=== PATIENT | male | born 1990 | race American Indian/Alaskan Native ===

== ENCOUNTER 2020-05-31 14:56 | Emergency (ER) | payer MEDICAID ==
[2020-05-31 15:06] VITALS: BP 143/78
--- NOTE | 2020-05-31 15:57 | Emergency Department Report ---
Chief Complaint: Laceration/Recheck/Suture Stated Complaint: RT LEG/RT ANKLE STITCHS REMOVED Time Seen by Provider: 05/31/20 15:09 - HPI History of Present Illness: This is a 30-year-old male with past medical history of schizophrenia who presents the emergency department from the [facility] to have his braxton removed from 2 wounds on his right leg. He reports this was 3 weeks ago and he cannot recall what happened. He reports some burning pain to his foot. He was sent here for evaluation, suture removal and possible antibiotics. He denies any other symptoms. He reports some burning pain to his foot that is worse when he bears weight. - ROS Review of Systems: Denies any associated fever, chills, night sweats, headache, dizziness, or vision, nausea,, diarrhea, chest pain shortness of breath or any other asso ciated symptoms - Exam Vital Signs: Vital Signs 05/31/20 14:59 Temperature 98.8 F Pulse Rate 92 H Respiratory 18 Rate Blood Pressure 143/78 O2 Sat by Pulse 97 Oximetry Physical Exam: GENERAL APPEARANCE: Well-developed, well-nourished, no acute distress HEENT: Normocephalic and atraumatic. No scleral icterus. Pupils are equal, round, and reactive to light and accommodation. No conjunctival injection is noted. Oropharynx is clear. Mouth revealed good dentition, no lesions. Tympanic membranes are clear. NECK: Supple. Trachea is midline. No evidence of thyroid enlargement. No lymphadenopathy or tenderness. CHEST: Symmetric. Nontender to palpation. LUNGS: Breath sounds are equal and clear bilaterally. No wheezes, rhonchi, or rales. HEART: Regular rate and rhythm with normal S1 and S2. No murmurs, gallops, or rubs. BREASTS: Symmetrical. No skin or nipple retractions. No nipple discharges or masses. ABDOMEN: Soft, flat, and benign. No mass, tenderness, guarding, or rebound. No organomegaly or hernia. Bowel sounds are present. No CVA tenderness or flank mass. GENITOURINARY: Deferred RECTAL: Deferred EXTREMITIES: No cyanosis, clubbing, or edema. No lower extreme edema, negative Homans sign bilaterally NEUROLOGIC: No focal sensory or motor deficits are noted. Gait is normal. Cranial nerves II through XII are intact. Deep tendon reflexes are intact. PSYCHIATRIC: The patient is awake, alert, and oriented x3 patient is energetic with pressured speech but otherwise acting appropriately. SKIN: Warm, dry, and well perfused. Good turgor. No lesions, nodules or rashes are noted. No onychomycosis. There are 2 lacerations to the right upper and lower leg measuring approximately 4 cm. Both have braxton. The laceration of the lower leg on the lateral side is clean dry and intact but does dehisce when pulled on and not think the braxton are quite ready to come out. The laceration on the right thigh with braxton is clean dry and intact and ready for braxton to be removed. LYMPHATICS: No cervical, axillary, or groin adenopathy is noted. MSE screening note: Focused history and physical exam performed. Due to findings the following was ordered: Braxton removed from the wound on the lateral right thigh but not the right lower leg due to concern for dehiscence. The [facility] was called and he will be transported back to the [facility]. I will send him home with Keflex and return emerge department change worsening symptoms. ED Medical Decision Making - Medical Decision Making Patient nontoxic no acute distress. Vital signs are stable. His wound did appear slightly erythematous but did not appear infected. There is no pathologic erythema. I was concerned if I took the braxton out on the wound on the lower leg that the wound would dehisce and the patient did not want me to take the braxton out at this time. I did take the braxton out of the wound on the upper leg. I recommended patient rate 1 week and return to the ER to have these removed. I will send him home with a short course of Keflex to cover for infection although this is a low suspicion at this time. Patient instructed to return the emerge department any worsening symptoms. He verbalized understanding of the diagnosis, treatment plan and follow-up instructions and all his questions were answered. - Differential Diagnosis Laceration, abrasion, burn ED Disposition for MSE Clinical Impression: Visit for wound check, Removal of staple Disposition: - TO HOME OR SELFCARE Is pt being admited?: No Condition: Stable Instructions: Wound Closure Removal, Care After Prescriptions: cephALEXin [Keflex] 500 mg PO Q6HR #28 capsule Time of Disposition: 15:57
== END 2020-05-31 17:45 | disposition home or self-care (01) ==
LOC: ED 14:56
DX: Z48.02 Encounter for removal of sutures (principal)
CPT/HCPCS: 99281